=== PATIENT | female | born 1960 | race American Indian/Alaskan Native ===

== ENCOUNTER 2017-04-06 08:23 | Emergency (ER) | payer OTHER ==
[2017-04-06 08:34] VITALS: BP 132/68; PULSE 83; TEMP 98.2; BMI 31.8
[2017-04-06] MEDS ORDERED: IBUPROFEN 600 MG TABLET (FP) PO ONE ×2 (08:42→08:50)
--- NOTE | 2017-04-06 08:42 | PDOC ---
History of Present Illness - General Chief Complaint: Pain Stated Complaint: HAND INJURY Time Seen by Provider: 04/06/17 08:36 History Source: Patient Exam Limitations: No Limitations - History of Present Illness Initial Comments: CHIEF COMPLAINT: 56 y/o afebrile female with PMH DM c/o b/l wrist and hand pain s/p work injury this morning. HISTORY OF PRESENT ILLNESS: The patient was working on [employer] when the bar from a patient's bed fell onto both of her hands. She states she can move both hands and all fingers but has some pain. She did apply ice to both hands. She denies numbness/tingling, lacerations, bleeding. She is right handed. Vital signs on arrival are within normal limits. REVIEW OF SYSTEMS: GENERAL/CONSTITUTIONAL: No fever/chills. No weakness. No weight change. MUSCULOSKELETAL: +b/l hand and wrist pain. No neck or back pain. SKIN: No rash or easy bruising. NEUROLOGIC: No headache, vertigo, loss of consciousness, or loss of sensation. PHYSICAL EXAM: VITAL_SIGNS: within normal limits GENERAL_APPEARANCE: alert, cooperative, no obvious discomfort. MENTAL_STATUS: speech clear, oriented X 3, responds appropriately to questions. NEURO: motor intact and sensory intact in injured extremities. EXTREMITIES: TTP of right medial wrist with minimal swelling. TTP of thenar eminence of left hand. 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 Full flexion, extension, eversion, inversion of b/l wrists. Full flexion and extension of b/ l fingers without pain. No lacerations. No obvious deformities. No snuffbox TTP b/l. No erythema or warmth. SKIN: warm, dry, good color. Past History - Past Medical History Allergies/Adverse Reactions: Allergies Allergy/AdvReac Type Severity Reaction Status Date / Time No Known Allergies Allergy Verified 04/06/17 08:28 Home Medications: Ambulatory Orders Acetaminophen W/ Codeine #3 [Tylenol # 3] 1 combo PO Q6H PRN #14 tablet Metformin Xr [Glucophage Xr] 500 mg PO DAILY@0700 06/07/12 Diabetes: Yes (NIDDM) - Immunization History Immunization Up to Date: Yes - Psycho/Social/Smoking Cessation Hx Anxiety: No Suicidal Ideation: No Smoking Status: No Smoking History: Never smoked Number of Cigarettes Smoked Daily: 0 Information on smoking cessation initiated: No Hx Alcohol Use: No Drug/Substance Use Hx: No Substance Use Type: None *Physical Exam - Vital Signs Last Vital Signs Temp Pulse Resp BP Pulse Ox 98.2 F 83 20 132/68 99 04/06/17 08:29 04/06/17 08:29 04/06/17 08:29 04/06/17 08:29 04/06/17 08:29 Medical Decision Making - Medical Decision Making A/P: 56 y/o female with b/l wrist and hand pain s/p work injury this morning. Plan is as follows: 1. Xray b/l wrist and hand 2. PO ibuprofen Xray b/l wrist and hand IMPRESSION: (wet read) No acute fracture. Gave the patient the results. Suggested RICE and Ibuprofen for pain if needed. Will give work note. Instructed the patient to f/u with Dr. Domingo if no improvement in symptoms within 1 week The patient verbalizes understanding of all instructions, has no further questions and is awaiting discharge. *DC/Admit/Observation/Transfer Diagnosis at time of Disposition: Work related injury, Bilateral wrist pain, Bilateral hand pain - Discharge Dispostion Disposition: HOME Condition at time of disposition: Good - Patient Instructions Printed Discharge Instructions: How To Perform RICE (Rest, Ice, Compress, Elevate), DI for Wrist Pain Additional Instructions: Discharge Instructions: -Take Ibuprofen if needed for pain with food -Follow RICE instructions -Follow up with Dr. Domingo in 1 week if no improvement in symptoms - Post Discharge Activity Work/School Note: Back to Work
== END 2017-04-06 09:27 | disposition home or self-care (01) ==
LOC: JERFT 08:23
DX: M79.641 Pain in right hand (principal); M25.532 Pain in left wrist; M25.531 Pain in right wrist; M79.642 Pain in left hand; W20.8XXA Other cause of strike by thrown, projected or falling object, initial encounter; Y93.89 Activity, other specified; Y92.230 Patient room in hospital as the place of occurrence of the external cause; Y99.0 Civilian activity done for income or pay
CPT/HCPCS: 73110-TC-LT; 73110-TC-RT; 73130-TC-LT; 73130-TC-RT; 99281-25

== ENCOUNTER 2021-03-25 07:44 | Emergency (ER) | payer OTHER ==
[2021-03-25 07:55] VITALS: BP 131/72; PULSE 93; TEMP 98.3; BMI 30.2
[2021-03-25] MEDS ORDERED: IBUPROFEN 600 MG TABLET (FP) PO ONE (08:08)
== END 2021-03-25 08:59 | disposition home or self-care (01) ==
LOC: JER 07:44
DX: L02.212 Cutaneous abscess of back [any part, except buttock and flank] (principal)
CPT/HCPCS: 99283-25

== ENCOUNTER 2021-06-09 04:39 | Day surgery (SDC) | payer OTHER ==
[2021-06-05 16:39] VITALS: BMI 34.0
[2021-06-09 11:05] VITALS: TEMP 97.3
[2021-06-09 12:09] VITALS: BP 104/60; PULSE 67
== END 2021-06-09 12:00 | disposition home or self-care (01) ==
LOC: JASU-ENDO 04:39
PROVIDERS: ATTEND Internal Medicine Gastroenterology
PROC: 0DB98ZX Excision of Duodenum, Via Natural or Artificial Opening Endoscopic, Diagnostic (ICD-10-PCS; 2021-06-09)
PROC: 0DB78ZX Excision of Stomach, Pylorus, Via Natural or Artificial Opening Endoscopic, Diagnostic (ICD-10-PCS; 2021-06-09)
PROC: 0DJD8ZZ Inspection of Lower Intestinal Tract, Via Natural or Artificial Opening Endoscopic (ICD-10-PCS; principal; 2021-06-09 10:25)
DX: Z12.11 Encounter for screening for malignant neoplasm of colon (principal); K21.9 Gastro-esophageal reflux disease without esophagitis; K29.40 Chronic atrophic gastritis without bleeding; K29.70 Gastritis, unspecified, without bleeding; K44.9 Diaphragmatic hernia without obstruction or gangrene; K64.8 Other hemorrhoids; I10 Essential (primary) hypertension; E11.9 Type 2 diabetes mellitus without complications; Z79.4 Long term (current) use of insulin; R10.13 Epigastric pain
CPT/HCPCS: 88305-TC; 88342-TC

== ENCOUNTER 2021-09-28 22:39 | Emergency (ER) | payer OTHER ==
[2021-09-28 22:46] VITALS: TEMP 97.7; BMI 30.4
[2021-09-29 00:10] LABS: BASO % 0.5 % (0-2.0); EOS % 2.8 % (0-4.5); HEMATOCRIT 41.3 % (32.4-45.2); HEMOGLOBIN 13.7 GM/dL (10.7-15.3); LYMPH % 34.2 % (8-40); MCH 29.2 pg (25.7-33.7); MCHC 33.2 g/dl (32.0-36.0); MEAN CELL VOLUME 87.9 fl (80-96); MEAN PLT VOLUME 8.3 fl (7.5-11.1); MONO % 7.7 % (3.8-10.2); NEUT % 54.8 % (42.8-82.8); PLATELET COUNT 237 10^3/uL (134-434); RBC 4.69 M/mm3 (3.60-5.2); RDW 13.4 % (11.6-15.6); WHITE BLOOD COUNT 6.3 K/mm3 (4.0-10.0)
[2021-09-29 00:25] LABS: INR 0.9 (0.83-1.09); PROTHROMBIN TIME (PATIENT) 10.3 SEC (9.7-13.0)
[2021-09-29 00:28] LABS: ACTIVATED PTT 30.5 SECONDS (25.2-36.5)
[2021-09-29 00:31] LABS: CALCIUM 9.2 mg/dL (8.5-10.1)
[2021-09-29 00:32] LABS: ALBUMIN 4.2 g/dl (3.4-5.0); BLOOD UREA NITROGEN 19.6 mg/dL (7-18)
[2021-09-29 00:35] LABS: CREATININE 0.7 mg/dL (0.55-1.3)
[2021-09-29 00:36] LABS: BILIRUBIN,TOTAL 0.2 mg/dL (0.2-1); TOT PROT 7.6 g/dl (6.4-8.2)
[2021-09-29] MEDS ORDERED: ACETAMINOPHEN 1000 MG/100 ML BAG IVPB ONE (01:00)
[2021-09-29] MEDS ORDERED: ACETAMINOPHEN INJECTION 100 ML IVPB ONE (01:02)
[2021-09-29 02:01] VITALS: BP 139/74; PULSE 73
== END 2021-09-29 02:01 | disposition home or self-care (01) ==
LOC: JER 22:39
PROC: 3E033GC Introduction of Other Therapeutic Substance into Peripheral Vein, Percutaneous Approach (ICD-10-PCS; principal; 2021-09-28)
DX: M79.604 Pain in right leg (principal)
CPT/HCPCS: 36415; 80053; 85025; 85610; 85730; 93970-TC; 99284-25; J0131

== ENCOUNTER 2022-01-08 23:50 | Emergency (ER) | payer OTHER ==
[2022-01-09 00:01] VITALS: BP 135/74; PULSE 93; TEMP 97.7; BMI 30.2
[2022-01-09] MEDS ORDERED: ACETAMINOPHEN 325 MG TABLET (FP) PO ONE (00:56)
[2022-01-09] MEDS ORDERED: LIDOCAINE 5% TOPICAL PATCH TP ONE (00:56)
[2022-01-09] MEDS ORDERED: ACETAMINOPHEN 325 MG TABLET (FP) ONE (01:26)
[2022-01-09] MEDS ORDERED: LIDOCAINE 5% TOPICAL PATCH ONE (01:27)
[2022-01-09] MEDS ORDERED: LIDOCAINE PATCH REMOVAL MC SCH (22:00)
== END 2022-01-09 02:35 | disposition home or self-care (01) ==
LOC: JER 23:50
DX: S60.042A Contusion of left ring finger without damage to nail, initial encounter (principal); W23.1XXA Caught, crushed, jammed, or pinched between stationary objects, initial encounter
CPT/HCPCS: 73140-TC-LT-FY; 99283-25

== ENCOUNTER 2023-01-15 20:08 | Emergency (ER) | payer OTHER ==
[2023-01-15 20:18] VITALS: BP 131/79; PULSE 72; RESP 18; TEMP 97.8; BMI 31.2
== END 2023-01-15 23:09 | disposition left against medical advice (07) ==
LOC: JER 20:08
DX: R42 Dizziness and giddiness (principal)
CPT/HCPCS: 99281-25

== ENCOUNTER 2023-03-09 09:12 | Emergency (ER) | payer OTHER ==
[2023-03-09 09:15] VITALS: BP 143/82; PULSE 78; RESP 17; TEMP 97.4
[2023-03-09] MEDS ORDERED: IBUPROFEN 600 MG TABLET (FP) PO ONE ×2 (09:40→09:44)
[2023-03-09] MEDS ORDERED: LIDOCAINE 5% TOPICAL PATCH TP ONE (09:40)
[2023-03-09] MEDS ORDERED: LIDOCAINE 5% TOPICAL PATCH ONE (09:44)
[2023-03-09] MEDS ORDERED: CYCLOBENZAPRINE HCL 10 MG TABLET (FP) PO ONE (09:59)
[2023-03-09] MEDS ORDERED: CYCLOBENZAPRINE HCL 10 MG TABLET (FP) ONE (10:07)
[2023-03-09] MEDS ORDERED: CYCLOBENZAPRINE HCL 5 MG TABLET ONE (10:08)
== END 2023-03-09 12:19 | disposition home or self-care (01) ==
LOC: JER 09:12
DX: M25.512 Pain in left shoulder (principal); M25.561 Pain in right knee; V43.52XA Car driver injured in collision with other type car in traffic accident, initial encounter
CPT/HCPCS: 71045-TC-FY; 72100-TC-FY; 73030-TC-LT-FY; 73562-TC-RT-FY; 99284-25

== ENCOUNTER 2023-06-18 22:11 | Emergency (ER) | payer OTHER ==
[2023-06-18 22:16] VITALS: RESP 18
[2023-06-18] MEDS ORDERED: ACETAMINOPHEN 1000 MG/100 ML BAG IVPB ONE (22:58)
[2023-06-18] MEDS ORDERED: LACTATED RINGERS SOLUTION 1000 ML INFUS.BAG IV ONE (22:59)
[2023-06-18] MEDS ORDERED: ACETAMINOPHEN INJECTION 100 ML IVPB ONE (23:11)
[2023-06-18 23:15] LABS: BASO % 0.5 % (0-2.0); EOS % 0.3 % (0-4.5); HEMATOCRIT 42.3 % (32.4-45.2); HEMOGLOBIN 14.7 GM/dL (10.7-15.3); MCH 29.8 pg (25.7-33.7); MCHC 34.7 g/dl (32.0-36.0); MEAN CELL VOLUME 85.9 fl (80-96); MONO % 6.9 % (3.8-10.2); NEUT % 80.3 % (42.8-82.8); PLATELET COUNT 245 10^3/uL (134-434); RBC 4.93 M/mm3 (3.60-5.2); RDW 13.4 % (11.6-15.6); WHITE BLOOD COUNT 10.2 K/mm3 (4.0-10.0)
[2023-06-18 23:26] LABS: INR 1.1 (0.83-1.09); PROTHROMBIN TIME (PATIENT) 12.8 SEC (9.7-13.0)
[2023-06-18 23:28] LABS: ACTIVATED PTT 30.3 SECONDS (25.2-36.5)
[2023-06-18 23:43] LABS: POTASSIUM 4.1 mmol/L (3.5-5.1)
[2023-06-18 23:45] LABS: CALCIUM 9.3 mg/dL (8.5-10.1)
[2023-06-18 23:46] LABS: ALBUMIN 4.2 g/dl (3.4-5.0); BLOOD UREA NITROGEN 18.2 mg/dL (7-18)
[2023-06-18 23:49] LABS: CREATININE 0.9 mg/dL (0.55-1.3)
[2023-06-18 23:50] LABS: BILIRUBIN,TOTAL 0.8 mg/dL (0.2-1)
[2023-06-18 23:51] LABS: TOT PROT 7.5 g/dl (6.4-8.2)
[2023-06-19] MEDS ORDERED: ONDANSETRON 4 MG/2 ML VIAL IVPUSH ONE (00:37)
[2023-06-19 00:54] VITALS: BP 130/67; PULSE 101; TEMP 98.4
== END 2023-06-19 03:00 | disposition home or self-care (01) ==
LOC: JER 22:11
PROC: 3E033NZ Introduction of Analgesics, Hypnotics, Sedatives into Peripheral Vein, Percutaneous Approach (ICD-10-PCS; principal; 2023-06-18)
DX: R06.02 Shortness of breath (principal); R11.2 Nausea with vomiting, unspecified; R07.9 Chest pain, unspecified
CPT/HCPCS: 36415; 71045-TC-FY; 80053; 84484; 85025; 85379; 85610; 85730; 93005; 93010; 99285-25

== ENCOUNTER 2024-10-16 20:52 | Emergency (ER) | payer OTHER ==
[2024-10-16 21:02] VITALS: BP 149/69; PULSE 100; RESP 20; TEMP 97.9; BMI 34.5
[2024-10-16] MEDS ORDERED: ACETAMINOPHEN 325 MG TABLET (FP) ONE (21:36)
[2024-10-16] MEDS ORDERED: KETOROLAC TROMETHAMINE 30 MG/1 ML VIAL ONE (22:12)
[2024-10-16] MEDS: KETOROLAC TROMETHAMINE 30 MG/1 ML VIAL IM ONE (22:16)
== END 2024-10-16 22:18 | disposition home or self-care (01) ==
LOC: JERFT 20:52
PROC: 3E0233Z Introduction of Anti-inflammatory into Muscle, Percutaneous Approach (ICD-10-PCS; principal; 2024-10-16)
DX: S60.211A Contusion of right wrist, initial encounter (principal); M25.511 Pain in right shoulder; W00.0XXA Fall on same level due to ice and snow, initial encounter
CPT/HCPCS: 73030-TC-RT-FY; 73110-TC-RT-FY; 73130-TC-RT-FY; 99284-25